=== PATIENT | female | born 1955 | race Caucasian/White ===

== ENCOUNTER 2024-08-20 17:30 | Outpatient (RCR) | payer SELFPAY | END 2024-08-23 23:59 | LOC: NS 17:30 | PROVIDERS: PCP Family Medicine | DX: Z71.3 Dietary counseling and surveillance (principal) ==

== ENCOUNTER 2024-08-27 15:52 | Outpatient (RCR) | payer SELFPAY | END 2024-09-22 23:59 | LOC: NS 15:52 | PROVIDERS: PCP Family Medicine | DX: Z71.3 Dietary counseling and surveillance (principal) ==